=== PATIENT | male | born 1930 | race Caucasian/White ===

== ENCOUNTER 2019-07-09 19:09 | Inpatient (IN) | payer MEDICARE ==
[~2019-07-09] VITALS: Ht 172.7 cm; Wt 74.3 kg
[2019-07-09] MEDS ORDERED: ASPI81CH PO (19:37)
[2019-07-09] MEDS ORDERED: LABE200 PO (19:37)
[2019-07-09] MEDS ORDERED: ATOR10 PO (19:37)
[2019-07-09] MEDS ORDERED: ALLO300 PO (19:37)
[2019-07-09] MEDS ORDERED: LOSA50 PO (19:37)
[2019-07-09] MEDS ORDERED: SPIR25 (19:38)
[2019-07-09 20:01] LABS: Alanine Aminotransfer (ALT/SGP 15 U/L (12-78); Albumin, Blood 2.9 g/dL (3.4-5.0); Alk Phos 62 U/L (50-136); Anion Gap 5 mmol/L (6-16); Aspartate Aminotrans (AST/SGOT 15 U/L (12-37); Bilirubin, Total 0.3 mg/dL (0.1-1.0); Blood Urea Nitrogen 65 mg/dL (8-24); CO2, Blood 23 mmol/L (21-32); Calcium, Blood 8.5 mg/dL (8.5-10.1); Chloride, Blood 108 mmol/L (98-108); Creatinine, Blood 1.12 mg/dL (0.60-1.20); Globulin, Blood 2.9 g/dL (2.2-4.0); Glomerular Filtration Rate >60 (60-); Glucose, Blood 136 mg/dL (70-99); Potassium, Blood 4.6 mmol/L (3.5-5.5); Sodium, Blood 136 mmol/L (136-145); Total Protein, Blood 5.8 g/dL (6.4-8.2); Troponin I <0.015 ng/mL (0.000-0.040)
[2019-07-09 20:06] LABS: Source, Urine Clean Catch
[2019-07-09 20:10] LABS: BASOPHILS ABSOLUTE AUTO 0.02 K/mm3 (0.00-0.23); BASOPHILS PERCENT AUTO 0 % (0-2); EOSINOPHILS ABSOLUTE AUTO 0.25 K/mm3 (0.00-0.68); EOSINOPHILS PERCENT AUTO 4 % (0-6); Hematocrit 19.8 % (37.0-53.0); Hemoglobin 6.4 g/dL (13.5-17.5); IMMATURE GRAN ABSOLUTE AUTO 0.02 K/mm3 (0.00-0.10); IMMATURE GRAN PERCENT AUTO 0 % (0-1); LYMPHOCYTES ABSOLUTE AUTO 1.35 K/mm3 (0.84-5.20); LYMPHOCYTES PERCENT AUTO 21 % (21-46); MONOCYTES ABSOLUTE AUTO 0.55 K/mm3 (0.16-1.47); MONOCYTES PERCENT AUTO 9 % (4-13); Mean Corpuscular HGB 32.8 pg (26.0-34.0); Mean Corpuscular HGB Conc 32.3 g/dL (31.5-36.5); Mean Corpuscular Volume 102 fL (80-100); Mean Platelet Volume 10.9 fL (9.1-12.4); NEUTROPHILS ABSOLUTE AUTO 4.11 K/mm3 (1.96-9.15); NEUTROPHILS PERCENT AUTO 65 % (41-73); Platelet Count 196 K/mm3 (150-400); RDW Coefficient Variation 14.5 % (11.7-14.2); RDW Standard Deviation 52.2 fL (35.1-46.3); Red Blood Cell Count 1.95 M/mm3 (4.30-5.90)
[2019-07-09 20:13] LABS: Appearance, Urine Clear (Clear); Bilirubin, Urine Neg (Neg); Blood, Urine 1+ (Neg); Color, Urine Yellow (P-Yellow); Glucose Qualitative, Urine Neg (Neg); Ketones, Urine Neg (Neg); Leukocyte Esterase, Urine 3+ (Neg); Nitrite, Urine Neg (Neg); Protein, Urine Neg (Neg); Specific Gravity, Urine 1.015 (1.003-1.022); Urobilinogen, Urine NORM (Normal)
[2019-07-09 20:20] LABS: Bacteria Mod /hpf; Mucus Light ({null, 0-Heavy}); Red Blood Cells, Urine 0-2 /hpf (0-2); Squamous Epithelial Cells Few /hpf (Few)
[2019-07-09 22:41] LABS: Percent Saturation 8.7 % (20.0-50.0)
--- NOTE | 2019-07-09 23:45 | NUR ---
ADMIT PT ARRIVES TO PCU 3 FROM ER VIA STRETCHER @ APPROXIMATELY 2333. PT IS AOX4. VSS. VERY PLEASANT GENTLEMAN. PT STANDS AND TRANSFERS TO HOSPITAL BED WITH MINIMAL ASSISTANCE. PT DENIES DIZZINESS OR LIGHTHEADEDNESS AT THIS TIME, BUT DOES APPEAR DYSPNEIC ON EXERTION. O2 SATS CURRENTLY 98% ON RA. LUNG SOUNDS CLEAR IN UPPER LOBES WITH CLEAR, BUT DIMINISHED BASES. BLOOD CURRENTLY TRANSFUSING @150 ML/HR TO RAC AND PROTONIX INFUSING TO LAC @ 10 ML/HR. PT TOLERATING WELL. SCDs PLACED FOR DVT PROPHYLAXIS. CARDIAC RHYTHM IS ATRIAL FIBRILLATION ON MONITOR WITH RATE CONTROLLED IN THE 70-80s. PT DENIES CHEST PAIN. PT ORIENTED TO ROOM AND CALL LIGHT SYSTEM. ENCOURAGED TO CALL FOR ASSISTANCE WITH NEEDS R/T CURRENT ILLNESS- PT VERBALIZES UNDERSTANDING. PT EDUCATED ON CURRENT ILLNESS AND QUESTIONS ANSWERED REGARDING PLAN OF CARE. WILL CONTINUE WITH ADMISSION AND MONITORING. BED IN LOWEST POSITION, CALL LIGHT IN REACH.
[2019-07-10] MEDS ORDERED: ATOR40TA PO (00:03)
[2019-07-10] MEDS ORDERED: Aldactone25 MG PO (00:06)
[2019-07-10] MEDS ORDERED: ACET325 PO (00:08)
[2019-07-10] MEDS ORDERED: DABI150C PO (00:35)
--- NOTE | 2019-07-10 06:10 | NUR ---
SHIFT SUMMARY PT HAS REMAINED AOX4 THROUGHOUT SHIFT. VSS. PLEASANT AND COOPERATIVE WITH CARE. PT HAS RESTED THROUGHOUT MUCH OF THE NIGHT WITH HOME CPAP IN PLACE. PT DENIES DYSPNEA. TWO UNITS OF PRBCs TRANSFUSED THROUGHOUT THE NIGHT. TOLERATED WELL WITH NO CHANGES TO LUNG SOUNDS OR O2 DEMAND. PT USES URINAL INDEPENDENTLY AT THE BEDSIDE. CALLS APPROPRIATELY FOR CARE. PT HAS REMAINED NPO SINCE ARRIVAL TO UNIT PER ORDERS. DENIES N/V. NO OTHER CHANGES NOTED FROM INITIAL ASSESSMENT. WILL CONTINUE TO MONITOR AND REPORT TO ONCOMING SHIFT RN. BED IN LOW POSITION. CALL LIGHT IN REACH.
[2019-07-10 06:27] LABS: BASOPHILS ABSOLUTE AUTO 0.03 K/mm3 (0.00-0.23); BASOPHILS PERCENT AUTO 1 % (0-2); EOSINOPHILS ABSOLUTE AUTO 0.23 K/mm3 (0.00-0.68); EOSINOPHILS PERCENT AUTO 4 % (0-6); Hematocrit 23.5 % (37.0-53.0); Hemoglobin 7.8 g/dL (13.5-17.5); IMMATURE GRAN ABSOLUTE AUTO 0.04 K/mm3 (0.00-0.10); IMMATURE GRAN PERCENT AUTO 1 % (0-1); LYMPHOCYTES ABSOLUTE AUTO 1.33 K/mm3 (0.84-5.20); LYMPHOCYTES PERCENT AUTO 23 % (21-46); MONOCYTES PERCENT AUTO 10 % (4-13); Mean Corpuscular HGB 31.2 pg (26.0-34.0); Mean Corpuscular HGB Conc 33.2 g/dL (31.5-36.5); Mean Platelet Volume 10.1 fL (9.1-12.4); NEUTROPHILS ABSOLUTE AUTO 3.68 K/mm3 (1.96-9.15); NEUTROPHILS PERCENT AUTO 62 % (41-73); Platelet Count 160 K/mm3 (150-400); RDW Coefficient Variation 15.3 % (11.7-14.2); RDW Standard Deviation 52.6 fL (35.1-46.3); White Blood Cell Count 5.91 K/mm3 (4.00-11.30)
[2019-07-10 06:39] LABS: Anion Gap 3 mmol/L (6-16); Blood Urea Nitrogen 56 mg/dL (8-24); Bun/Creatinine Ratio 56.1 (12.0-20.0); CO2, Blood 26 mmol/L (21-32); Calcium, Blood 8.5 mg/dL (8.5-10.1); Chloride, Blood 112 mmol/L (98-108); Glomerular Filtration Rate >60 (60-); Glucose, Blood 104 mg/dL (70-99); Potassium, Blood 4.2 mmol/L (3.5-5.5); Sodium, Blood 141 mmol/L (136-145)
[2019-07-10 06:40] LABS: Mean Corpuscular Volume 94 fL (80-100)
--- NOTE | 2019-07-10 10:45 | NUR ---
REASSESSMENT PT ASSESSED AT NOON. NO SIGNIFICANT CHANGES SINCE MORNING ASSESSMENT. BOWEL SOUNDS ARE HYPERACTIVE AT THIS TIME. VSS. LUNG SOUNDS REMAIN DIMINISHED IN THE BASES. ABD SOFT AND NON-TENDER. WILL CONTINUE TO MONITOR.
--- NOTE | 2019-07-10 11:43 | NUR ---
PRBC UNIT OF PRBC STARTED PER ORDER. VSS. WILL CONTINUE TO MONITOR.
--- NOTE | 2019-07-10 11:56 | NUR ---
DR. CHRISTIANSON HERE TO CONSULT ON PT.
--- NOTE | 2019-07-10 11:59 | NUR ---
VSS AND NO ACUTE CHANGES IN FIRST 15 MINUTES OF PRBC TRANSFUSION. WILL CONTINUE TO MONITOR.
--- NOTE | 2019-07-10 12:50 | NUR ---
PT TAKEN FOR ENDOSCOPY AT THIS TIME.
--- NOTE | 2019-07-10 13:03 | NUR ---
History, Chart, Medications and Allergies reviewed before start of procedure. Lungs clear T/O to Auscultation. Patient confirms NPO status and agrees with scheduled surgery. Pre-Op teaching done. Pt verbalizes understanding.
--- NOTE | 2019-07-10 13:15 | NUR ---
07/10/19 1315 [facility] Bite Block Placed3-LEAD EKG REVIEWED WITH PHYSICIAN PRIOR TO START OF PROCEDURE.History, Chart, Medications and Allergies reviewed before start of procedure.Patient to ENDO 1MONITOR INTACT WITH CONTINUOUS PULSE OXIMETRY AND INTERMITTENT BP.O2 VIA N/C INTACT THROUGHOUT SEDATION/PROCEDURE.See Anesthesia record
--- NOTE | 2019-07-10 13:45 | NUR ---
PT ARRIVED BACK TO THE ROOM AFTER ENDOSCOPY AT APPROXIMATLY 1335. PT ALERT AND ORIENTED. DENIES PAIN. WILL CONTINUE TO MONITOR.
--- NOTE | 2019-07-10 15:30 | NUR ---
ASSESSMENT NO CHANGES TO REPORT SINCE NOON ASSESSMENT. VSS. UNIT OF PRBC COMPLETE. WILL CONTINUE TO MONITOR.
[2019-07-10 16:30] LABS: Hematocrit 26.4 % (37.0-53.0); Hemoglobin 8.8 g/dL (13.5-17.5)
--- NOTE | 2019-07-10 19:26 | NUR ---
SHIFT SUMMARY PT HAS DENIED PAIN THIS SHIFT. PT HAD UPPER ENDOSCOPY WITH DR. CHRISTIANSON TODAY. HE TOLERATED 1 UNIT PRBC WHICH DID IMPROVE H&H. PT HAS BEEN INDEPENDENT IN THE ROOM. PT DECLINED TO WEAR CONTINUOUS PULSE OX WHILE AWAKE. VSS. REPORT GIVEN TO DAVID UNGER.
--- NOTE | 2019-07-10 20:14 | NUR ---
PROVIDER CONTACTED PT WITH SOME LEG CRAMPING IN UPPER THIGHS THAT IS CAUSING RESTLESSNESS. PT REQUESTING TYLENOL. PROVIDER, [employer], CONTACTED AND ORDERS RECEIVED FOR TYLENOL ONCE TO BE GIVEN NOW. WILL INPUT ORDER AND ADMINISTER.
[2019-07-11 03:54] LABS: Hematocrit 25.3 % (37.0-53.0); Hemoglobin 8.5 g/dL (13.5-17.5); Mean Corpuscular HGB 30.8 pg (26.0-34.0); Mean Corpuscular HGB Conc 33.6 g/dL (31.5-36.5); Mean Corpuscular Volume 92 fL (80-100); Mean Platelet Volume 10.3 fL (9.1-12.4); Platelet Count 156 K/mm3 (150-400); RDW Coefficient Variation 17.3 % (11.7-14.2); RDW Standard Deviation 57.3 fL (35.1-46.3); Red Blood Cell Count 2.76 M/mm3 (4.30-5.90); White Blood Cell Count 5.86 K/mm3 (4.00-11.30)
[2019-07-11 04:13] LABS: Albumin, Blood 2.8 g/dL (3.4-5.0); Anion Gap 8 mmol/L (6-16); Blood Urea Nitrogen 49 mg/dL (8-24); CO2, Blood 23 mmol/L (21-32); Calcium, Blood 8.3 mg/dL (8.5-10.1); Chloride, Blood 113 mmol/L (98-108); Creatinine, Blood 0.96 mg/dL (0.60-1.20); Glomerular Filtration Rate >60 (60-); Glucose, Blood 99 mg/dL (70-99); Sodium, Blood 144 mmol/L (136-145)
--- NOTE | 2019-07-11 06:08 | NUR ---
SHIFT SUMMARY PT HAS REMAINED AOX4 THROUGHOUT THE NIGHT. VSS. PLEASANT AND COOPERATIVE WITH CARE. PT CONTINUES TO AMBULATE INDEPENDENTLY TO RESTROOM INDEPENDENTLY THROUGHOUT THE NIGHT. PT CONTINUES TO DENY DIZZINESS/ LIGHTHEADEDNESS AND DYSPNEA WITH ACTIVITY. PT HAS SLEPT THROUGHOUT MUCH OF THE NIGHT WITH HOME CPAP IN PLACE. 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 PT TOLD THAT STOOL SPECIMEN IS NEEDED TO SEND TO LAB AND TO CALL STAFF WHEN HE HAS BM IN ORDER TO ASSESS. NO OTHER CHANGES FROM INITIAL ASSESSMENT. WILL CONTINUE TO MONITOR AND REPORT TO ONCOMING SHIFT RN. BED IN LOW POSITION, CALL LIGHT IN REACH.
--- NOTE | 2019-07-11 09:33 | NUR ---
PCU DAYSHIFT ASSUMED CARE OF PT APPROX. 0700. PT A&OX4. VITAL SIGNS STABLE. ASSESSMENT COMPLETED. PT REPORTS FEELING GOOD THIS MORINING. PT REPORTS THAT BOWEL MOVEMENT YESTERDAY WAS DARK BUT STATES HAS NOT HAD ONE YET TODAY. [employer] STAFF IN TO SEE PT TO BEGIN PROCEDURE THIS MORNING. PT CURRENTLY OFF AT [employer] UNDERGOING PROCEDURE. PT WAS ABLE TO GO BY WHEELCHAIR. WILL AWAIT STAFF TO BRING PT BACK TO UNIT.
--- NOTE | 2019-07-11 10:51 | NUR ---
BACK TO UNIT PT ARRIVED BACK TO UNIT AT THIS TIME. PT JOHN TO TRANSFER WITH SBA BACK TO BED.
--- NOTE | 2019-07-11 17:29 | NUR ---
SHIFT SUMMARY PT PLEASANT, COOPERATIVE AND USES CALL LIGHT APPROPRIATELY. PT VITAL SIGNS STABLE. T/O SHIFT. PT REPROTS ONE BURGONDY COLORED STOOL THIS MORNING. PT AGREED TO HAVE COLONOSCOPY HERE. PT WILL BEGIN PREP TONIGHT AND BE NPO AT MIDNIGHT FOR THIS TOMORROW. PT ABLE TO AMBULATE AROUND UNIT AND TOLERATED WELL. PT CONTINUES TO DENIES ANY DIZZINESS, LIGHTHEADEDNESS. AT BEDSIDE INTERMITTENTLY. PT UP IN CHAIR AT THIS TIME. CALL LIGHT IN REACH AND PT DENIES ANY NEEDS. WILL CONTINUE TO MONITOR.
--- NOTE | 2019-07-11 23:15 | NUR ---
ASSUMED CARE OF PATIENT AT APPROXIMATELY 1900 FROM CB Meléndez RN. PATIENT ALERT AND ORIENTED X4; INDEPENDENT IN ROOM. PATIENT DENIES PAIN, NUMBNESS, TILNGING, DIZZINESS AND NAUSEA. PATIENT REPORTS HE HAD DIZZINESS UPON ADMIT; WILL CALL IF OCCURS AGAIN. PATIENT BEGAN PREP FOR COLONOSCOPY TONIGHT; REPORTS TWO LIQUID BMS SO FAR; PATIENT REPORTS TWO BLACK BMS TODAY BEFORE PREP; CLEAR LIQUID DIET. PIV S/L. MEDICAL NO TELE STATUS; OXYGEN SATURATION ABOVE 90% ON ROOM AIR. PATIENT CURRENTLY RESTING IN BED; CALL LIGHT IN REACH; BED IN LOWEST POSISTION; WILL CONTINUE TO MONITOR AND ASSESS UNTIL END OF SHIFT.
--- NOTE | 2019-07-12 06:34 | NUR ---
PATIENT REPORTS FOUR TOTAL BMS AFTER GOLYTELY; REPORTS THEY ARE CLEAR WITH SOME BROWN; DENIES BLOOD OR BLACK; PATIENT FLUSHES BEFORE STAFF CAN OBSERVE. PATIENT SLEPT ABOUT EIGHT HOURS LAST NIGHT; VSS. WILL CONTINUE TO MONITOR AND ASSESS UNTI END OF SHIFT.
[2019-07-12 06:35] LABS: BASOPHILS ABSOLUTE AUTO 0.04 K/mm3 (0.00-0.23); BASOPHILS PERCENT AUTO 1 % (0-2); EOSINOPHILS ABSOLUTE AUTO 0.33 K/mm3 (0.00-0.68); EOSINOPHILS PERCENT AUTO 6 % (0-6); Hematocrit 24.3 % (37.0-53.0); Hemoglobin 8.1 g/dL (13.5-17.5); IMMATURE GRAN ABSOLUTE AUTO 0.02 K/mm3 (0.00-0.10); IMMATURE GRAN PERCENT AUTO 0 % (0-1); LYMPHOCYTES ABSOLUTE AUTO 1.23 K/mm3 (0.84-5.20); LYMPHOCYTES PERCENT AUTO 21 % (21-46); MONOCYTES ABSOLUTE AUTO 0.73 K/mm3 (0.16-1.47); MONOCYTES PERCENT AUTO 12 % (4-13); Mean Corpuscular HGB 30.7 pg (26.0-34.0); Mean Corpuscular HGB Conc 33.3 g/dL (31.5-36.5); Mean Corpuscular Volume 92 fL (80-100); Mean Platelet Volume 9.8 fL (9.1-12.4); NEUTROPHILS ABSOLUTE AUTO 3.66 K/mm3 (1.96-9.15); NEUTROPHILS PERCENT AUTO 61 % (41-73); Platelet Count 182 K/mm3 (150-400); RDW Coefficient Variation 16.9 % (11.7-14.2); RDW Standard Deviation 55.1 fL (35.1-46.3); Red Blood Cell Count 2.64 M/mm3 (4.30-5.90); White Blood Cell Count 6.01 K/mm3 (4.00-11.30)
[2019-07-12 06:53] LABS: Albumin, Blood 2.8 g/dL (3.4-5.0); Anion Gap 7 mmol/L (6-16); Blood Urea Nitrogen 33 mg/dL (8-24); Bun/Creatinine Ratio 31.1 (12.0-20.0); CO2, Blood 24 mmol/L (21-32); Calcium, Blood 8.4 mg/dL (8.5-10.1); Chloride, Blood 115 mmol/L (98-108); Creatinine, Blood 1.06 mg/dL (0.60-1.20); Glomerular Filtration Rate >60 (60-); Glucose, Blood 96 mg/dL (70-99); Phosphorus, Blood 3.4 mg/dL (2.5-4.9); Potassium, Blood 3.7 mmol/L (3.5-5.5); Sodium, Blood 146 mmol/L (136-145)
--- NOTE | 2019-07-12 09:16 | NUR ---
PCU DAYSHIFT ASSUMED CARE OF PT APPROX. 0700. PT A&OX4. ASSESSMENT COMPLETED. VITAL SIGNS STABLE. PT REPORTS CONTINUING TO HAVE LOOSE STOOL BUT REPORTS THE LAST ONE MORE CLEAR. HE REPORTS HE FEELS HE IS MAINLY WATER AT THIS POINT. PT DENIES ANY DIZZINESS OR LIGHTHEADEDNESS. PT JOHN TO AMBUATLE TO BATHROOM NEEDED. PT UP IN CHAIR. CLAL LIGHT IN REACH AND PT DENIES ANY NEEDS. WILL CONTINUE TO GIVE BOWLE PREP PER ORDERS AND MONITOR UNTIL PROCEDURE
--- NOTE | 2019-07-12 14:38 | NUR ---
NOTE RECIEVED NEW ROOM ASSIGNMENT ATTMEPTED TO CONTACT NURSE OF NEW ROOM AND WAS UNABLE TO REACH THE NURSE. WILL TRY AGAIN.
--- NOTE | 2019-07-12 14:57 | NUR ---
NOTE REPORT CALLED TO RECIEVING RN.PT TO BE ESCORTED BY [facility] STAFF MEMBER TO NEW ROOM.
--- NOTE | 2019-07-12 17:43 | NUR ---
History, Chart, Medications and Allergies reviewed before start of procedure. Patient confirms NPO status and agrees with scheduled surgery. Patient states colon prep results clear. Pre-Op teaching done. Pt verbalizes understanding.
--- NOTE | 2019-07-12 17:48 | NUR ---
Lungs clear T/O to Auscultation.
--- NOTE | 2019-07-12 17:49 | NUR ---
IV IN R AC ASSESSED AND NOTED TO BE LEAKING. IV DC'D INTACT.
--- NOTE | 2019-07-12 17:50 | NUR ---
RECEIVED TO RM 324 AT 1505 FROM [facility]. HE IS FULLY DRESSED, A&O, AND PLEASANT. HE IS AMBULATORY SAYS HE IS CLEAR AFTER HIS PREP AND HAS NO COMPLAINTS. HE SAYS OUTPUT IS VERY PALE YELLOW.
--- NOTE | 2019-07-12 17:51 | NUR ---
TO DAY SURGERY FOR HIS COLONOSCOPY AT 1740. CLOTHING LEFT AT BEDSIDE. HIS NURA WILL BE NOTIFIED. SHE IS HOPING TO GET A REPORT FROM THE DOCTOR AFTERWARD.
--- NOTE | 2019-07-12 18:13 | NUR ---
DAY SURGERY NOTIFIED THAT LILY'S NURA WILL BE IN THE SURGERY WAITING AREA BY 182 TO HEAR FROM THE DOCTOR.
--- NOTE | 2019-07-12 18:24 | NUR ---
07/12/[address] [facility] CASE WITH DR. BERNAL. SEE ANETHESIA RECORD FOR CARE
--- NOTE | 2019-07-13 04:13 | NUR ---
SHIFT SUMMARY PT CAME BACK FROM COLONOSCOPY WITHOUT INCIDENT. VSS THROUGHOUT SHIFT. NO COMPLAINTS OF DIZZINESS, SOB, OR CHEST PAIN. PT ALERT, ORIENTED AND INDEPENDENT. PT ABLE TO TOLERATE FULL CARDIAC DIET. NO PT COMPLAINTS AT THIS TIME. WILL CONTINUE TO MONITOR.
[2019-07-13 04:59] LABS: Hematocrit 24.3 % (37.0-53.0); Hemoglobin 7.9 g/dL (13.5-17.5)
--- NOTE | 2019-07-13 12:22 | NUR ---
PATIENT DISCHARGE: PATIENT DISCHARGED TO HOME THIS SHIFT. MEDICATION RECONCILIATION COMPLETED; MED LIST FAXED TO [facility]. DISCHARGE EDUCATION COMPLETED WITH PATIENT AND FAMILY. PATIENT TRANSPORTED TO EXIT BY [facility] WITH WHEELCHAIR AT 1200. PATIENT DEPARTED [facility] VIA PRIVATE AUTO.
== END 2019-07-13 12:30 | disposition home or self-care (01) | DRG 378 ==
LOC: ER 19:09 → PCU 22:07 → MEDS 07-12 15:12
PROVIDERS: Internal Medicine; Physician Assistant; Student in an Organized Health Care Education/Training Program; ADMIT Family Medicine
PROC: 0DJ08ZZ Inspection of Upper Intestinal Tract, Via Natural or Artificial Opening Endoscopic (ICD-10-PCS; 2019-07-10)
PROC: 0DBH8ZZ Excision of Cecum, Via Natural or Artificial Opening Endoscopic (ICD-10-PCS; 2019-07-12)
PROC: 0DDC8ZX Extraction of Ileocecal Valve, Via Natural or Artificial Opening Endoscopic, Diagnostic (ICD-10-PCS; principal; 2019-07-12 16:30)
PROC: 0W3P8ZZ Control Bleeding in Gastrointestinal Tract, Via Natural or Artificial Opening Endoscopic (ICD-10-PCS; 2019-07-12 16:30)
PROC: 0DBK8ZX Excision of Ascending Colon, Via Natural or Artificial Opening Endoscopic, Diagnostic (ICD-10-PCS; 2019-07-12 16:30)
PROC: 0DBL8ZX Excision of Transverse Colon, Via Natural or Artificial Opening Endoscopic, Diagnostic (ICD-10-PCS; 2019-07-12 16:30)
DX: K25.4 Chronic or unspecified gastric ulcer with hemorrhage (principal); D62 Acute posthemorrhagic anemia; E87.0 Hyperosmolality and hypernatremia; Z79.82 Long term (current) use of aspirin; I10 Essential (primary) hypertension; I34.0 Nonrheumatic mitral (valve) insufficiency; Z95.1 Presence of aortocoronary bypass graft; Z96.652 Presence of left artificial knee joint; I25.10 Atherosclerotic heart disease of native coronary artery without angina pectoris; I48.2 Chronic atrial fibrillation; M10.9 Gout, unspecified; K44.9 Diaphragmatic hernia without obstruction or gangrene; K63.5 Polyp of colon
CPT/HCPCS: 36415; 36416; 36430; 70450; 71046; 78278; 80048; 80053; 80069; 81001; 82272; 82607; 82728; 82746; 83540; 83550; 83880; 84484; 85014; 85018; 85025; 85027; 86850; 86900; 86901; 86923; 87086; 87338; 88305; 93005; 93010; 94762; 96365; 99285-25; A9270; A9560; C9113; J2704; J2765; J7030; J7120; P9016